=== PATIENT | male | born 1960 | race Caucasian/White ===

== ENCOUNTER 2020-08-14 13:20 | Observation (INO) | payer OTHER ==
--- NOTE | 2020-08-14 13:30 | PDOC ---
Rapid Medical Evaluation Time Seen by Provider: 08/14/20 13:24 Medical Evaluation: 08/14/20 13:24 CC: was at dr guerrero for routine visit and while drawing blood fainted, he states this has happened a few times prior due to blood drawing and denies any pain presently. On no anticoagulation tx, no headache or dizziness presently, questionable sz recently Exam: no neuro focal deficits Plan: head ct Discharge Disposition - Diagnosis Syncope - Referrals - Patient Instructions - Post Discharge Activity
--- NOTE | 2020-08-14 14:14 | PDOC ---
History of Present Illness - General Chief Complaint: Syncope/Near Syncope Stated Complaint: SYNCOPE Time Seen by Provider: 08/14/20 13:24 - History of Present Illness Initial Comments: 59 yo male with pmh HTN, HLD, back pain, insomnia. Pt presents after fainting while having his blood drawn at the lab. He felt warm, dizzy, and had abdominal discomfort prior to losign consciousness. He was unconscious for 5 minutes, returned to baseline without confusion, did not fall or hit his head, did not have bowel/urinary incontinence, was able to ambulate afterwards. This has happened 4-5 other times during blood draws. He denies fevers, chills, cp, sob, nvd, abd pain, dysuria. 08/14/20 14:10 Past History - Medical History Allergies/Adverse Reactions: Allergies Allergy/AdvReac Type Severity Reaction Status Date / Time No Known Allergies Allergy Verified 08/15/20 09:34 Home Medications: Ambulatory Orders Amitriptyline HCl 25 mg PO DAILY 08/14/20 Atorvastatin Ca [Lipitor] 20 mg PO HS 08/14/20 Cyanocobalamin (Vitamin B-12) [Vitamin B-12] 1,000 mcg PO DAILY 30 Days #30 capsule 08/15/20 Metoprolol Succinate 50 mg PO DAILY 30 Days #30 tab.er.24h 08/15/20 CVA: No COPD: No HTN: Yes Hypercholesterolemia: Yes - Psycho-Social/Smoking History Smoking History: Never smoked Have you smoked in the past 12 months: No Information on smoking cessation initiated: No - Substance Abuse Hx (Audit-C & DAST Scrn) How often the patient has a drink containing alcohol: Never Score: In Men: 4 or > Positive; In Women: 3 or > Positive: 0 Screen Result (Pos requires Nsg. Audit-10AR): Negative In the last yr the pt used illegal drug/Rx for NonMed reason: No Score: Yes response is considered Positive: 0 Screen Result (Positive result requires Nsg. DAST-10): Negative Review of Systems - Review of Systems Constitutional: No: Chills, Fever HEENTM: No: Blurred Vision, Recent change in vision, Double Vision Respiratory: No: Cough, Shortness of Breath Cardiac (ROS): Yes: Syncope. No: Chest Pain, Lightheadedness, Palpitations ABD/GI: No: Diarrhea, Nausea, Vomiting : No: Dysuria, Discharge, Hematuria Musculoskeletal: No: Back Pain, Joint Pain Integumentary: No: Erythema, Lesions Neurological: No: Headache, Tingling Psychiatric: No: Anxiety, Depression Endocrine: No: Intolerance to Cold, Intolerance to Heat Hematologic/Lymphatic: No: Anemia, Easy Bleeding *Physical Exam - Vital Signs Last Vital Signs Temp Pulse Resp BP Pulse Ox 98.3 F 73 17 110/77 100 08/14/20 13:25 08/14/20 13:25 08/14/20 13:25 08/14/20 13:25 08/14/20 13:25 - Physical Exam General Appearance: Yes: Appropriately Dressed. No: Apparent Distress HEENT: positive: TARIQ, Normal ENT Inspection, Normal Voice Neck: negative: Tender, Rigid Respiratory/Chest: positive: Lungs Clear, Normal Breath Sounds. negative: Respiratory Distress Cardiovascular: positive: Regular Rhythm, Regular Rate, S1, S2. negative: Edema, JVD, Murmur Gastrointestinal/Abdominal: positive: Flat, Soft. negative: Tender Musculoskeletal: positive: Normal Inspection. 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 Pt presents after a sycopal episode during blood draw - prodrome of warmth, dizziness, abd distention. - return to baseline w/o confusion, no incontinence - pt is currently asymptomatic VS: wnl PE: rrr, clear lungs, nt nd abdomen EKG: Brugada Labs: cbc: wnl cmp: hypokalemia (3.4), theresa (creatinine 1.9 Differential Dx: elliot Spoke with Dr. Villarreal who will perform Procainamide stress test tomorrow. Pt admitted to inpatient team Discharge - Discharge Information Problems reviewed: Yes Clinical Impression/Diagnosis: Syncope Qualifiers: Syncope type: unspecified Qualified Code(s): R55 - Syncope and collapse Condition: Fair Disposition: AGAINST MEDICAL ADVICE - Admission Yes - Follow up/Referral - Patient Discharge Instructions - Post Discharge Activity
--- NOTE | 2020-08-14 14:28 | PDOC ---
Documentation entered by Shira Cruz SCRIBE, acting as scribe for Thang Bobby MD. Thang Bobby MD: This documentation has been prepared by the Anthony alvares Xhesika, SCRIBE, under my direction and personally reviewed by me in its entirety. I confirm that the documentation accurately reflects all work, treatment, procedures, and medical decision making performed by me. Attending Attestation - Resident Resident Name: Karoline Sutherland - ED Attending Attestation I have performed the following: I have examined & evaluated the patient, The case was reviewed & discussed with the resident, I agree w/resident's findings & plan, Exceptions are as noted - HPI HPI: 08/14/20 14:15 The patient is a 59y/o male with a pmh of HTN, HLD, back pain, insomnia s/p syncopal episode while having his blood drawn at the lab. Pt states he was unconscious for 5 minutes and then returned to baseline without confusion. Pt denies hitting his head.Pt denies bowel/urinary incontinence,fevers, chills, cp, sob, nvd, abd pain, dysuria. Allergies: Per Nursing Records PCP:Dr. Franklin - Physicial Exam PE: 08/14/20 14:27 EXAMINATION CONSTITUTIONAL: Well-appearing; well-nourished; in no apparent distress HEAD: Normocephalic; atraumatic EYES: PERRL; EOM intact ENMT: External appears normal; normal oropharynx NECK: Supple; non-tender; no cervical lymphadenopathy CARD: Normal S1, S2; no murmurs, rubs, or gallops RESP: Normal chest excursion with respiration; breath sounds clear and equal bilaterally; no wheezes, rhonchi, or rales ABD: Soft, non-distended; non-tender; no palpable organomegaly, no palpable hernias EXT: Normal ROM in all four extremities; non-tender to palpation; distal pulses intact SKIN: Warm, dry, no rash NECranial nerves II through XII are grossly intact; motor is five 5 x 5 x 4; no pronation drift; gait is stable. - Medical Decision Making 08/14/20 14:27 Patient is a well-appearing 59-year-old male with history of recurrent vasovagal syncope is after blood draws presented to the ER after a witnessed syncopal/seizure-like episode at the PMDs office while his blood was being drawn without head injury or associated postictal period. In the ER, patient is awake and alert, well-appearing, with no focal neuro deficits. Will obtain EKG. Will discuss with PMD. Likely discharge. 08/14/20 16:16 EKG shows RBBB like QRS complexes in the precordial leads with ST segment elevation suggestive of Brugada. QTC is also noted to be elevated. Cardiology consulted. Advises evaluation and admission. Will admit. Discharge - Discharge Information Problems reviewed: Yes Clinical Impression/Diagnosis: Syncope Qualifiers: Syncope type: unspecified Qualified Code(s): R55 - Syncope and collapse Condition: Fair - Follow up/Referral - Patient Discharge Instructions Patient Printed Discharge Instructions: DI for Syncope in Adults (Fainting) Additional Instructions: At home, drink plenty of fluids and stay well nourished. Follow up with your primary care doctor within 5 days. Return to the emergency department if your symptoms worsen and/or you experience fevers, chills, headaches, lightheadedness, faintness, shortness of breath, chest pain, nausea, vomiting, diarrhea, abdominal pain. - Post Discharge Activity
--- NOTE | 2020-08-14 15:12 | EKG ---
Test Reason : Blood Pressure : / mmHG Vent. Rate : 098 BPM Atrial Rate : 098 BPM P-R Int : 154 ms QRS Dur : 152 ms QT Int : 422 ms P-R-T Axes : 050 -31 019 degrees QTc Int : 538 ms NORMAL SINUS RHYTHM LEFT AXIS DEVIATION RIGHT BUNDLE BRANCH BLOCK ABNORMAL ECG NO PREVIOUS ECGS AVAILABLE Confirmed by MD LIN, YARITZA ([id number]) on 08/14/2020 3:12:07 PM Referred By: Confirmed By:YARITZA CEBALLOS MD
[2020-08-14 16:50] LABS: BASO % 0.7 % (0-2.0); EOS % 1.7 % (0-4.5); HEMATOCRIT 37.9 % (35.4-49); HEMOGLOBIN 12.2 GM/dL (11.7-16.9); LYMPH % 15.1 % (8-40); MCHC 32.1 g/dl (32.0-35.9); MEAN CELL VOLUME 77.8 fl (80-96); MEAN PLT VOLUME 8.9 fl (7.5-11.1); MONO % 6.2 % (3.8-10.2); NEUT % 76.3 % (42.8-82.8); PLATELET COUNT 330 K/MM3 (134-434); RBC 4.87 M/mm3 (4.00-5.60); RDW 17.4 % (11.9-15.9); WHITE BLOOD COUNT 9.6 K/mm3 (4.0-10.0)
[2020-08-14 17:07] LABS: INR 1.02 (0.83-1.09); PROTHROMBIN TIME (PATIENT) 12.3 SEC (9.7-13.0)
[2020-08-14 17:17] LABS: POTASSIUM 3.4 mmol/L (3.5-5.1)
[2020-08-14 17:20] LABS: CALCIUM 9.3 mg/dL (8.5-10.1)
[2020-08-14 17:21] LABS: ALBUMIN 3.8 g/dl (3.4-5.0); BLOOD UREA NITROGEN 20.1 mg/dL (7-18); MAGNESIUM 2.2 mg/dL (1.8-2.4)
[2020-08-14 17:24] LABS: CREATININE 1.9 mg/dL (0.55-1.3)
[2020-08-14 17:25] LABS: BILIRUBIN,TOTAL 0.4 mg/dL (0.2-1); TOT PROT 8.2 g/dl (6.4-8.2)
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
[2020-08-14] MEDS ORDERED: POTASSIUM CHLORIDE TABS 20 MEQ TABLET.ER (FP) PO ONE ×2 (18:26→18:30)
--- NOTE | 2020-08-14 18:37 | PN ---
Teaching Attending Note Name of Resident: Julissa Trammell ATTENDING PHYSICIAN STATEMENT I saw and evaluated the patient. I reviewed the resident's note and discussed the case with the resident. I agree with the resident's findings and plan as documented. SUBJECTIVE: Patient seen and examined at bedside, endorses syncopal episode when getting his blood drawn, EKG concerning for ?Brugada but unclear will need repeat EKG/trops and possible Procainamide-induced study for further investigation for Na-channelopathy. VSS. OBJECTIVE: GA comfortable, AAox3, NAD HEENT NC/AT, no JVD, Dry MM, neck supple Chest CTAB, no crackles CVS s1, s2+, RRR Abd Soft, NT, ND, BS+ Ext no LE edema, no calf tenderness, moves all 4 ext. Vital Signs (72 hours) 08/14/20 08/14/20 08/14/20 13:25 16:50 17:03 Temperature 98.3 F 98.2 F Pulse Rate 73 Pulse Rate [ 96 H 96 H Apical] Respiratory 17 19 19 Rate Blood Pressure 110/77 Blood Pressure 124/88 130/86 [Right Arm] O2 Sat by Pulse 100 100 99 Oximetry (%) 08/14/20 17:22 Temperature 98.0 F Pulse Rate Pulse Rate [ 89 Apical] Respiratory 19 Rate Blood Pressure Blood Pressure 132/76 [Right Arm] O2 Sat by Pulse 100 Oximetry (%) Laboratory Results - last 24 hr 08/14/20 08/14/20 08/14/20 16:12 16:12 16:12 WBC 9.6 RBC 4.87 Hgb 12.2 Hct 37.9 MCV 77.8 L MCH 25.0 L MCHC 32.1 RDW 17.4 H Plt Count 330 MPV 8.9 Absolute Neuts (auto) 7.3 Neutrophils % 76.3 Lymphocytes % 15.1 Monocytes % 6.2 Eosinophils % 1.7 Basophils % 0.7 Nucleated RBC % 1 H PT with INR 12.30 INR 1.02 Sodium 139 Potassium 3.4 L Chloride 101 Carbon Dioxide 24 Anion Gap 14 BUN 20.1 H Creatinine 1.9 H Est GFR (CKD-EPI)AfAm 43.14 Est GFR (CKD-EPI)NonAf 37.22 Random Glucose 89 Calcium 9.3 Magnesium 2.2 Total Bilirubin 0.4 AST 19 ALT 24 Alkaline Phosphatase 84 Creatine Kinase 99 Troponin I 0.03 Total Protein 8.2 Albumin 3.8 Urine Color Urine Appearance Urine pH Ur Specific Roslyn Urine Protein Urine Glucose (UA) Urine Ketones Urine Blood Urine Nitrite Urine Bilirubin Urine Urobilinogen Ur Leukocyte Esterase Urine WBC (Auto) Urine RBC (Auto) Urine Casts (Auto) U Epithel Cells (Auto) Urine Bacteria (Auto) 08/14/20 18:35 WBC RBC Hgb Hct MCV MCH MCHC RDW Plt Count MPV Absolute Neuts (auto) Neutrophils % Lymphocytes % Monocytes % Eosinophils % Basophils % Nucleated RBC % PT with INR INR Sodium Potassium Chloride Carbon Dioxide Anion Gap BUN Creatinine Est GFR (CKD-EPI)AfAm Est GFR (CKD-EPI)NonAf Random Glucose Calcium Magnesium Total Bilirubin AST ALT Alkaline Phosphatase Creatine Kinase Troponin I Total Protein Albumin Urine Color Yellow Urine Appearance Clear Urine pH 6.5 Ur Specific Roslyn 1.016 Urine Protein 1+ H Urine Glucose (UA) Negative Urine Ketones Negative Urine Blood Negative Urine Nitrite Negative Urine Bilirubin Negative Urine Urobilinogen 0.2 Ur Leukocyte Esterase Negative Urine WBC (Auto) 11 Urine RBC (Auto) 10 Urine Casts (Auto) 13 U Epithel Cells (Auto) 10 Urine Bacteria (Auto) 9 Home Medications Medication Instructions Recorded Amitriptyline HCl 25 mg PO DAILY 08/14/20 Amlodipine Besylate/Benazepril 1 cap PO DAILY 08/14/20 [Lotrel 10-20 mg Capsule] Atorvastatin Ca [Lipitor] 20 mg PO HS 08/14/20 Ibuprofen 800 mg PO Q8H PRN 08/14/20 Current Medications Generic Name Dose Route Start Last Admin Trade Name Freq PRN Reason Stop Dose Admin Amitriptyline HCl 25 mg 08/14/20 22:00 Elavil - PO HS [facility] Atorvastatin Calcium 20 mg 08/14/20 22:00 Lipitor - PO HS SAMINA Heparin Sodium (Porcine) 5,000 unit 08/14/20 22:00 Heparin - SQ TID [facility] ASSESSMENT AND PLAN: 59 M r/o Brugada syndrome Syncope LUIS Chronic LBP HTN HLD Plan: Hold all NSAIDs, IVF and repeat chem Renal US for LUIS Repeat trops/EKG serially, tele monitoring Correct electrolytes aggressively, IV Mg for prolonged Qtc and DC Elavil as this may further prolong Qtc Cardiology following DVT ppx: Heparin SC
[2020-08-14 18:49] LABS: EPI CELLS 10 /uL (0-25.1); HYALINE CASTS 13 /uL (0-3.1); PH,URINE 6.5 (5.0-8.0); URINE APPEARANCE CLEAR; URINE BACTERIA 9 /uL (0-1359); URINE BILIRUBIN NEGATIVE (NEGATIVE); URINE COLOR YELLOW; URINE GLUCOSE (UA) NEGATIVE (NEGATIVE); URINE KETONE NEGATIVE (NEGATIVE); URINE LEUK ESTERASE NEGATIVE (NEGATIVE); URINE NITRITE NEGATIVE (NEGATIVE); URINE PROTEIN 1+ (NEGATIVE); URINE RBC 10 /uL (0-23.9); URINE UROBILINOGEN 0.2 mg/dL (0.2-1.0); URINE WBC 11 /uL (0-25.8)
[2020-08-14] MEDS ORDERED: MAGNESIUM SULF 50% (8.12 MEQ/2 ML-1 GM VIAL) IVPB ONE (18:49)
[2020-08-14] MEDS ORDERED: LACTATED RINGERS SOLUTION 1000 ML INFUS.BAG IV ONE (18:49)
[2020-08-14] MEDS ORDERED: MAGNESIUM SULFATE IN WATER 2 GM/50 ML IVPB IVPB ONE (18:54)
--- NOTE | 2020-08-14 19:12 | CON.CARD ---
Consult Consult Specialty:: Cardiology Referred by:: ED and Dr. Chang Reason for Consultation:: Syncope with Brugada features on ECG. - History of Present Illness Chief Complaint: Faiting during blood draw. History of Present Illness: 59 year old man with a PMHx of HTN, HLD, recurrent syncope starting in the and chronic low back pain presented to ED 08/24/20 for a syncopal episode during blood draw. Patient started feeling dizzy and "tight" around the abdominal area and suddenly passed out while he was having blood draw. He was unconscious for about 5 minutes and regained consciousness without confusion. No fall, trauma, bowel/bladder incontinence. Patient reports he had many syncopal episodes that started in the . He would usually have syncopal episodes every 1-2 years. Last reported syncopal episode was 7 months ago when he passed out while crossing the street. He denies any recent illness or sick contacts. He reports no chest pain, shortness of breath, palpitations, edema orthopnea, PND, abdominal pain, diarrhea, urinary symptoms. ECG 08/14/20: Sinus rhythm at BPM. Normal axis. RBBB with some type I Brugada features. However, the suspected big R wave (rSR) is part of RBBB. There is no coved type ST elevation in V1 or V2. 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 Cardio/Vascular: Yes: HTN, Hyperlipdemia, Other - Smoking History Smoking history: Never smoked Have you smoked in the past 12 months: No Home Medications - Allergies Allergies/Adverse Reactions: Allergies Allergy/AdvReac Type Severity Reaction Status Date / Time No Known Allergies Allergy Verified 08/14/20 16:28 - Home Medications Home Medications: Ambulatory Orders Amitriptyline HCl 25 mg PO DAILY 08/14/20 Amlodipine Besylate/Benazepril [Lotrel 10-20 mg Capsule] 1 cap PO DAILY 08/14/20 Atorvastatin Ca [Lipitor] 20 mg PO HS 08/14/20 Ibuprofen 800 mg PO Q8H PRN 08/14/20 Review of Systems - Review of Systems Constitutional: reports: Weakness Eyes: reports: No Symptoms HENT: reports: No Symptoms Neck: reports: No Symptoms Cardiovascular: reports: Other Respiratory: reports: No Symptoms Gastrointestinal: reports: Abdominal Pain Genitourinary: reports: No Symptoms Breasts: reports: No Symptoms Reported Musculoskeletal: reports: No Symptoms Integumentary: reports: No Symptoms Neurological: reports: Change in LOC, Syncope Endocrine: reports: No Symptoms Hematology/Lymphatic: reports: No Symptoms Psychiatric: reports: No Symptoms Vital Signs: Vital Signs Temperature 98.0 F 08/14/20 17:22 Pulse Rate 89 08/14/20 17:22 Respiratory Rate 19 08/14/20 17:22 Blood Pressure 132/76 08/14/20 17:22 O2 Sat by Pulse Oximetry (%) 100 08/14/20 17:22 General: Well developed. Obese. No acute distress. Head: Normocephalic. Atraumatic, Eyes: PERRLA, EOMI. Sclerae anicteric. Conjunctivae clear. Neck: Supple. No JVD. No bruits. Heart: Normal S1, S2: Regular rhythm and rate. No murmur. No gallop or rub. Lungs: Symmetrical air entry. Clear to auscultation. No crackle. No wheezing or rhonchi. Abdomen: Soft. Bowel sound positive. Non tender. No masses. Extremities: No edema. No clubbing or cyanosis. PD 2+, equal bilaterally. Neuro: Intact, no focal findings. AAO X3 - Other Data Labs, Other Data: CBC, BMP 08/14/20 16:12 08/14/20 16:12 INR, PTT INR 1.02 (0.83-1.09) 08/14/20 16:12 Troponin, BNP 08/14/20 16:12 Troponin I 0.03 Troponin, BNP 08/14/20 16:12 Troponin I 0.03 Imaging - Results EKG: Image Reviewed (ECG 08/14/20: Sinus rhythm at BPM. Normal axis. RBBB with some type I Brugada features. However, the suspected big R wave (rSR) is part of RBBB. There is no coved type ST elevation in V1 or V2.) Assessment/Plan 59 year old man with a PMHx of HTN, HLD, recurrent syncope starting in the and chronic low back pain presented to ED 08/24/20 for a syncopal episode during blood draw. ECG 08/14/20: Sinus rhythm at BPM. Normal axis. RBBB with some type I Brugada features. However, the suspected big R wave (rSR) is part of RBBB. There is no coved type ST elevation in V1 or V2. 1) Recurrent syncope, predominantly happened during blood draw, likely vasovagal syncope. -Agree to admit the patient to tele. -Start metoprolol succinate 50 mg daily. -Would hold lisinopril and amlodipine if BP is under control with metoprolol. -Echocardiogram -Will consider tilt table test as ourpatient. 2) Questionable Brugada pattern on ECG. I reviewed ECG carefully. The suspected big R wave (rSR) is part of right bundle branch block (RBBB). There is no coved type ST elevation in V1 or V2 (pseudo-RBBB). He has true RBBB. NOT Brugada ECG pattern. -Repeat ECG. We will follow the patient with you.
[2020-08-14] MEDS ORDERED: AMITRIPTYLINE HCL 25 MG TABLET PO SCH (22:00)
[2020-08-14] MEDS ORDERED: ATORVASTATIN CA 20 MG TABLET (FP) PO SCH (22:00)
[2020-08-14] MEDS ORDERED: ATORVASTATIN CA 20 MG TABLET (FP) ONE (22:08)
[2020-08-14] MEDS ORDERED: HEPARIN NA (PORCINE) 5,000 UNITS/ML 1ML VIAL ONE (22:08)
[2020-08-14] MEDS: HEPARIN NA (PORCINE) 5,000 UNITS/ML 1ML VIAL SQ SCH (22:14)
[2020-08-15 01:18] VITALS: BMI 30.4
[2020-08-15] MEDS: HEPARIN NA (PORCINE) 5,000 UNITS/ML 1ML VIAL SQ SCH (06:30)
[2020-08-15 06:59] LABS: BASO % 1.2 % (0-2.0); EOS % 4.6 % (0-4.5); HEMATOCRIT 35.2 % (35.4-49); HEMOGLOBIN 11.3 GM/dL (11.7-16.9); LYMPH % 29.4 % (8-40); MCH 24.9 pg (25.7-33.7); MCHC 32.1 g/dl (32.0-35.9); MEAN CELL VOLUME 77.5 fl (80-96); MEAN PLT VOLUME 8.8 fl (7.5-11.1); MONO % 11.6 % (3.8-10.2); NEUT % 53.2 % (42.8-82.8); PLATELET COUNT 267 K/MM3 (134-434); RBC 4.54 M/mm3 (4.00-5.60); RDW 16.8 % (11.9-15.9)
[2020-08-15 07:10] LABS: PROTHROMBIN TIME (PATIENT) 12.1 SEC (9.7-13.0)
[2020-08-15 07:13] LABS: ACTIVATED PTT 21.8 SECONDS (25.2-36.5)
[2020-08-15 07:20] LABS: POTASSIUM 3.3 mmol/L (3.5-5.1)
[2020-08-15 07:41] LABS: TOT PROT 7.4 g/dl (6.4-8.2)
[2020-08-15 07:42] LABS: BLOOD UREA NITROGEN 26.2 mg/dL (7-18); CREATININE 1.5 mg/dL (0.55-1.3)
[2020-08-15 07:44] LABS: ALBUMIN 3.2 g/dl (3.4-5.0); PHOSPHOROUS 3.7 mg/dL (2.5-4.9)
[2020-08-15 07:49] LABS: MAGNESIUM 2.3 mg/dL (1.8-2.4)
[2020-08-15 07:54] LABS: BILIRUBIN,TOTAL 0.4 mg/dL (0.2-1)
[2020-08-15 08:36] VITALS: BP 129/76; PULSE 92; TEMP 98
[2020-08-15] MEDS ORDERED: POTASSIUM CHLORIDE TABS 20 MEQ TABLET.ER (FP) PO ONE (09:00)
[2020-08-15 09:24] LABS: ERYTHROCYTE SEDIMENTATION RATE 42 mm/hr (0-20)
[2020-08-15] MEDS ORDERED: LISINOPRIL 20 MG TABLET PO SCH (10:00)
[2020-08-15] MEDS ORDERED: PATIENT'S OWN MEDICATION (NON-FORMULARY) (Amlodipine Besylate/Benazepril [Lotrel 10-20 Mg PO SCH (10:00)
[2020-08-15] MEDS ORDERED: amLODIPine BESYLATE 10 MG TABLET (FP) PO SCH ×2 (10:00)
--- NOTE | 2020-08-15 11:49 | EKG ---
Test Reason : Blood Pressure : / mmHG Vent. Rate : 096 BPM Atrial Rate : 096 BPM P-R Int : 156 ms QRS Dur : 150 ms QT Int : 406 ms P-R-T Axes : 053 -45 006 degrees QTc Int : 512 ms NORMAL SINUS RHYTHM POSSIBLE LEFT ATRIAL ENLARGEMENT RIGHT BUNDLE BRANCH BLOCK LEFT ANTERIOR FASCICULAR BLOCK BIFASCICULAR BLOCK CANNOT RULE OUT INFERIOR INFARCT (MASKED BY FASCICULAR BLOCK?) , AGE UNDETERMINED ABNORMAL ECG WHEN COMPARED WITH ECG OF 14-AUG-2020 14:34, MINIMAL CRITERIA FOR INFERIOR INFARCT ARE NOW PRESENT Confirmed by BRAD EVERETT MD ([id number]) on 08/15/2020 11:49:24 AM Referred By: Confirmed By:BRAD EVERETT MD
--- NOTE | 2020-08-15 14:21 | PN ---
Teaching Attending Note Name of Resident: Vanessa Mederos ATTENDING PHYSICIAN STATEMENT I saw and evaluated the patient. I reviewed the resident's note and discussed the case with the resident. I agree with the resident's findings and plan as documented. SUBJECTIVE: Feels well, wants to go home. Denies chest pain/palpitations/lightheadedness. No headache/visual disturbance/limb numbness/weakness. OBJECTIVE: Afebrile, hemodynamically stable. Last Vital Signs Temp Pulse Resp BP Pulse Ox 98.0 F 92 H 18 129/76 98 08/15/20 08:17 08/15/20 08:17 08/15/20 08:36 08/15/20 08:17 08/15/20 08:36 HEENT - Atraumatic, Normocephalic. Heart - S1 S2, RRR Lungs - clear to auscultation Abdomen - Soft, non-tender. Bowel Sounds normal. Extremities - no edema, no calf tenderness. Neuro - AAO x 3. Tone/Power normal. Laboratory Results - last 24 hr 08/14/20 08/14/20 08/14/20 16:12 16:12 16:12 WBC 9.6 RBC 4.87 Hgb 12.2 Hct 37.9 MCV 77.8 L MCH 25.0 L MCHC 32.1 RDW 17.4 H Plt Count 330 MPV 8.9 Absolute Neuts (auto) 7.3 Neutrophils % 76.3 Lymphocytes % 15.1 Monocytes % 6.2 Eosinophils % 1.7 Basophils % 0.7 Nucleated RBC % 1 H ESR PT with INR 12.30 INR 1.02 PTT (Actin FS) Sodium 139 Potassium 3.4 L Chloride 101 Carbon Dioxide 24 Anion Gap 14 BUN 20.1 H Creatinine 1.9 H Est GFR (CKD-EPI)AfAm 43.14 Est GFR (CKD-EPI)NonAf 37.22 Random Glucose 89 Calcium 9.3 Phosphorus Magnesium 2.2 Ferritin Total Bilirubin 0.4 AST 19 ALT 24 Alkaline Phosphatase 84 Creatine Kinase 99 Troponin I 0.03 Total Protein 8.2 Albumin 3.8 Vitamin B12 TSH Urine Color Urine Appearance Urine pH Ur Specific [place] Urine Protein Urine Glucose (UA) Urine Ketones Urine Blood Urine Nitrite Urine Bilirubin Urine Urobilinogen Ur Leukocyte Esterase Urine WBC (Auto) Urine RBC (Auto) Urine Casts (Auto) U Pathogenic Cast Auto U Epithel Cells (Auto) Urine Bacteria (Auto) Syphilis Serology 08/14/20 08/14/20 08/15/20 18:35 22:00 06:12 WBC 5.0 RBC 4.54 Hgb 11.3 L Hct 35.2 L MCV 77.5 L MCH 24.9 L MCHC 32.1 RDW 16.8 H Plt Count 267 MPV 8.8 Absolute Neuts (auto) 2.7 Neutrophils % 53.2 D Lymphocytes % 29.4 D Monocytes % 11.6 H D Eosinophils % 4.6 H D Basophils % 1.2 Nucleated RBC % 0 ESR 42 H PT with INR INR PTT (Actin FS) Sodium Potassium Chloride Carbon Dioxide Anion Gap BUN Creatinine Est GFR (CKD-EPI)AfAm Est GFR (CKD-EPI)NonAf Random Glucose Calcium Phosphorus Magnesium Ferritin Total Bilirubin AST ALT Alkaline Phosphatase Creatine Kinase Troponin I < 0.02 Total Protein Albumin Vitamin B12 TSH Urine Color Yellow Urine Appearance Clear Urine pH 6.5 Ur Specific [place] 1.016 Urine Protein 1+ H Urine Glucose (UA) Negative Urine Ketones Negative Urine Blood Negative Urine Nitrite Negative Urine Bilirubin Negative Urine Urobilinogen 0.2 Ur Leukocyte Esterase Negative Urine WBC (Auto) 11 Urine RBC (Auto) 10 Urine Casts (Auto) 13 U Pathogenic Cast Auto Negative U Epithel Cells (Auto) 10 Urine Bacteria (Auto) 9 Syphilis Serology 08/15/20 08/15/20 08/15/20 06:12 06:12 06:12 WBC RBC Hgb Hct MCV MCH MCHC RDW Plt Count MPV Absolute Neuts (auto) Neutrophils % Lymphocytes % Monocytes % Eosinophils % Basophils % Nucleated RBC % ESR PT with INR 12.10 INR 1.00 PTT (Actin FS) 21.8 L Sodium 142 Potassium 3.3 L Chloride 106 Carbon Dioxide 25 Anion Gap 11 BUN 26.2 H Creatinine 1.5 H Est GFR (CKD-EPI)AfAm 57.41 Est GFR (CKD-EPI)NonAf 49.53 Random Glucose 121 H Calcium 9.0 Phosphorus 3.7 Magnesium 2.3 Ferritin 11.7 Total Bilirubin 0.4 AST 13 L ALT 21 Alkaline Phosphatase 78 Creatine Kinase Troponin I 0.02 Total Protein 7.4 Albumin 3.2 L Vitamin B12 280 TSH 0.98 D Urine Color Urine Appearance Urine pH Ur Specific [place] Urine Protein Urine Glucose (UA) Urine Ketones Urine Blood Urine Nitrite Urine Bilirubin Urine Urobilinogen Ur Leukocyte Esterase Urine WBC (Auto) Urine RBC (Auto) Urine Casts (Auto) U Pathogenic Cast Auto U Epithel Cells (Auto) Urine Bacteria (Auto) Syphilis Serology Non-reactive Discharge Medications Medication Instructions Recorded Amitriptyline HCl 25 mg PO DAILY 08/14/20 Atorvastatin Ca [Lipitor] 20 mg PO HS 08/14/20 Cyanocobalamin (Vitamin B-12) 1,000 mcg PO DAILY 30 Days #30 08/15/20 [Vitamin B-12] capsule Metoprolol Succinate 50 mg PO DAILY 30 Days #30 08/15/20 tab.er.24h ASSESSMENT AND PLAN: 59 year old male with history of HTN, HLD, Chronic lower back pain, recurrent syncope, admitted after syncopal episode during blood draw at PCP office. 1. Syncope, likely vasovagal Orthostatics negative CT Head - no acute findings, chronic multiple wander-ventricular low attenuation foci -chronic microvascular disease vs demyelination - for MRI and Neuro referral. Echo result pending. Carotid Duplex - tiny plaques, no hemodynamically significant stenosis. ECG - RBBB, TnI neg x 3. Cardiology evaluated and recommend starting Metoprolol. Norvasc/SAUD-I to be discontinued. Cardio out-patient follow up for tilt table testing. 3. LUIS on CKD 3 - Creat improving with gentle hydration. To determine baseline Creat from PCP 4. B12 borderline, likely deficient, needs replacement. 5. HTN - Norvasc/SAUD stopped in favor of Metoprolol as per Cardio. 6. HLD - Continue Statin 7. Microcytosis - Anemia work-up requested/pending 8. Hypokalemia - repleted. Patient refused to stay hospitalized for further eval and prior to Echo result. He was advised of adverse effects of leaving AMA and understood those risks including collapse, disability, . He signed appropriate documentation to leave against medical advice and was of sound mind with capacity for medical decision making. He was advised regarding Cardiology recommendations to stop Norvasc/SAUD-I in favor of Metoprolol, which he was told would be sent to his pharmacy. He was also advised to follow Cardiology on discharge.
--- NOTE | 2020-08-15 15:12 | DS ---
Physical Exam: SUBJECTIVE: Patient seen and examined. States he is leaving AMA because he needs to pay his rent. OBJECTIVE: Vital Signs Period Temp Pulse Resp BP Sys/Huff Pulse Ox Last 24 Hr 97.6 F-98.2 F 86-99 18-20 124-157/75-88 97-100 PHYSICAL EXAM GENERAL: The patient is awake, alert, and fully oriented, in no acute distress. HEAD: Normal with no signs of trauma. EYES: PERRL, extraocular movements intact NECK: Trachea midline, full range of motion LUNGS: Breath sounds equal, clear to auscultation bilaterally, no accessory muscle use. HEART: Regular rate and rhythm, S1, S2 without murmur, rub or gallop. ABDOMEN: Soft, nontender, nondistended EXTREMITIES: 2+ pulses, warm, well-perfused, no edema. NEUROLOGICAL: Cranial nerves II through XII grossly intact. Normal speech, gait not observed. PSYCH: Normal mood, normal affect. LABS Laboratory Results - last 24 hr 08/14/20 08/14/20 08/14/20 16:12 16:12 16:12 WBC 9.6 RBC 4.87 Hgb 12.2 Hct 37.9 MCV 77.8 L MCH 25.0 L MCHC 32.1 RDW 17.4 H Plt Count 330 MPV 8.9 Absolute Neuts (auto) 7.3 Neutrophils % 76.3 Lymphocytes % 15.1 Monocytes % 6.2 Eosinophils % 1.7 Basophils % 0.7 Nucleated RBC % 1 H ESR PT with INR 12.30 INR 1.02 PTT (Actin FS) Sodium 139 Potassium 3.4 L Chloride 101 Carbon Dioxide 24 Anion Gap 14 BUN 20.1 H Creatinine 1.9 H Est GFR (CKD-EPI)AfAm 43.14 Est GFR (CKD-EPI)NonAf 37.22 Random Glucose 89 Calcium 9.3 Phosphorus Magnesium 2.2 Ferritin Total Bilirubin 0.4 AST 19 ALT 24 Alkaline Phosphatase 84 Creatine Kinase 99 Troponin I 0.03 Total Protein 8.2 Albumin 3.8 Vitamin B12 TSH Urine Color Urine Appearance Urine pH Ur Specific [place] Urine Protein Urine Glucose (UA) Urine Ketones Urine Blood Urine Nitrite Urine Bilirubin Urine Urobilinogen Ur Leukocyte Esterase Urine WBC (Auto) Urine RBC (Auto) Urine Casts (Auto) U Pathogenic Cast Auto U Epithel Cells (Auto) Urine Bacteria (Auto) Syphilis Serology 08/14/20 08/14/20 08/15/20 18:35 22:00 06:12 WBC 5.0 RBC 4.54 Hgb 11.3 L Hct 35.2 L MCV 77.5 L MCH 24.9 L MCHC 32.1 RDW 16.8 H Plt Count 267 MPV 8.8 Absolute Neuts (auto) 2.7 Neutrophils % 53.2 D Lymphocytes % 29.4 D Monocytes % 11.6 H D Eosinophils % 4.6 H D Basophils % 1.2 Nucleated RBC % 0 ESR 42 H PT with INR INR PTT (Actin FS) Sodium Potassium Chloride Carbon Dioxide Anion Gap BUN Creatinine Est GFR (CKD-EPI)AfAm Est GFR (CKD-EPI)NonAf Random Glucose Calcium Phosphorus Magnesium Ferritin Total Bilirubin AST ALT Alkaline Phosphatase Creatine Kinase Troponin I < 0.02 Total Protein Albumin Vitamin B12 TSH Urine Color Yellow Urine Appearance Clear Urine pH 6.5 Ur Specific [place] 1.016 Urine Protein 1+ H Urine Glucose (UA) Negative Urine Ketones Negative Urine Blood Negative Urine Nitrite Negative Urine Bilirubin Negative Urine Urobilinogen 0.2 Ur Leukocyte Esterase Negative Urine WBC (Auto) 11 Urine RBC (Auto) 10 Urine Casts (Auto) 13 U Pathogenic Cast Auto Negative U Epithel Cells (Auto) 10 Urine Bacteria (Auto) 9 Syphilis Serology 08/15/20 08/15/20 08/15/20 06:12 06:12 06:12 WBC RBC Hgb Hct MCV MCH MCHC RDW Plt Count MPV Absolute Neuts (auto) Neutrophils % Lymphocytes % Monocytes % Eosinophils % Basophils % Nucleated RBC % ESR PT with INR 12.10 INR 1.00 PTT (Actin FS) 21.8 L Sodium 142 Potassium 3.3 L Chloride 106 Carbon Dioxide 25 Anion Gap 11 BUN 26.2 H Creatinine 1.5 H Est GFR (CKD-EPI)AfAm 57.41 Est GFR (CKD-EPI)NonAf 49.53 Random Glucose 121 H Calcium 9.0 Phosphorus 3.7 Magnesium 2.3 Ferritin 11.7 Total Bilirubin 0.4 AST 13 L ALT 21 Alkaline Phosphatase 78 Creatine Kinase Troponin I 0.02 Total Protein 7.4 Albumin 3.2 L Vitamin B12 280 TSH 0.98 D Urine Color Urine Appearance Urine pH Ur Specific [place] Urine Protein Urine Glucose (UA) Urine Ketones Urine Blood Urine Nitrite Urine Bilirubin Urine Urobilinogen Ur Leukocyte Esterase Urine WBC (Auto) Urine RBC (Auto) Urine Casts (Auto) U Pathogenic Cast Auto U Epithel Cells (Auto) Urine Bacteria (Auto) Syphilis Serology Non-reactive HOSPITAL COURSE: Date of Admission:08/14/20 Priyank Wolfe is a 59 yo man with PMH hypertension, hyperlipidemia, chronic back pain, insomnia, who presents after he passed out while having his blood drawn at his PCP office. He was admitted with syncope. Work up included CT head with no acute findings, but with chronic multiple wander-ventricular low attenuation foci -chronic microvascular disease vs demyelination (he was given referral for neuro), Carotid Dublex showing small plaques with no significant stenosis, EKG with RBB troponins negativex3. He was evaluated by cardiology who advised starting metoprolol succinate 50 mg and discontinuing amlodipine/benzapril. He was also found to be B12 deficient and a prescription for cyanocobalamin was sent to pharmacy. Found to have microcytosis, but anemia work up was not complete prior to him leaving AMA. Prescription for metoprolol succinate and cyanocobalamin sent to pharmacy. Patient warned of dangers of leaving AMA but proceeded to leave in order to pay his rent anyways. Date of Discharge: 08/15/20 Minutes to complete discharge: 35 Discharge Summary Problems reviewed: Yes Reason For Visit: SYNCOPE Condition: Fair - Instructions Diet, Activity, Other Instructions: YOUR VISIT You were brought to the hospital after you lost consciousness during a blood draw. While you were here, we performed an EKG and an ultrasound of the heart, which did not show any acute abnormalities. You were also found to have some chronic changes on your head CT scan. You are being referred to a Neurologist to discuss further management of these findings. You decided to leave against medical advice before your workup could be completed. MEDICATIONS Medications: - Please start taking Metoprolol Succinate 50mg per day by mouth - Please STOP taking Lotrel - Please START taking Vitamin B12 tablets 1000mcg per day by mouth FOLLOW UP Please follow up with your PCP within 1 week Please follow up with the painter interior finish, Tutu Landeros within 1 week Please follow up with Dr. Martínez, the neurologist, within 1 week Referrals: Yang Martínez MD [Staff Physician] - 1 Week (admission for syncope with CT head findings: multiple periventricular low attenuation foci that may represent demyelinating plaques or chronic ischemic changes) Tutu Villarreal MD [Staff Physician] - (f/u admission syncope) Britt Franklin [Staff Physician] - 1 Week (f/u admission syncope) Disposition: AGAINST MEDICAL ADVICE - Home Medications Comprehensive Discharge Medication List: Ambulatory Orders Amitriptyline HCl 25 mg PO DAILY 08/14/20 Atorvastatin Ca [Lipitor] 20 mg PO HS 08/14/20 Cyanocobalamin (Vitamin B-12) [Vitamin B-12] 1,000 mcg PO DAILY 30 Days #30 capsule 08/15/20 Metoprolol Succinate 50 mg PO DAILY 30 Days #30 tab.er.24h 08/15/20 This patient is new to me today: Yes Date on this admission: 08/15/20 Emergency Visit: No Critical Care patient: No - Discharge Referral Referred to [facility] No ATTENDING PHYSICIAN STATEMENT I saw and evaluated the patient. I reviewed the resident's note and discussed the case with the resident. I agree with the resident's findings and plan as documented. SUBJECTIVE: OBJECTIVE: ASSESSMENT AND PLAN:
--- NOTE | 2020-08-16 06:54 | ECHO ---
Name: ELIESER TAYLOR Exam:Adult Echocardiogram Study Date: 08/15/2020 08:44 AM Age: 59 yrs Height: 69 in Weight: 225 lb BSA: 2.2 m2 MMode/2D Measurements & Calculations IVSd: 0.78 cm Ao root diam: 2.9 cm LVIDd: 3.7 cm LA dimension: 3.1 cm LVIDs: 2.8 cm ACS: 1.8 cm LVPWd: 1.7 cm LVPWs: 1.7 cm EDV(Teich): 59.8 ml ESV(Teich): 29.1 ml LVOT diam: 2.0 cm LVLd ap4: 8.8 cm EDV(MOD-sp4): 145.0 ml LVLs ap4: 7.9 cm ESV(MOD-sp4): 72.0 ml SV(MOD-sp4): 73.0 ml TAPSE: 1.9 cm Doppler Measurements & Calculations MV E max bryant: 42.7 cm/sec Ao V2 max: 99.6 cm/sec MV A max bryant: 88.4 cm/sec Ao max P.0 mmHg MV E/A: 0.48 ANDREEA(V,D): 2.1 cm2 MV dec time: 0.07 sec LV V1 max P.0 mmHg PA V2 max: 120.1 cm/sec LV V1 max: 70.1 cm/sec PA max P.8 mmHg Med Peak E' Bryant: 5.3 cm/sec Med E/e': 8.1 Lat Peak E' Bryant: 5.2 cm/sec Lat E/e': 8.3 Procedure A two-dimensional transthoracic echocardiogram with color flow and Doppler was performed. Left Ventricle The left ventricle is normal in size. Left ventricular systolic function is low normal. Ejection Frac tion = 50-55%. No regional wall motion abnormalities noted. Right Ventricle The right ventricle is normal in size and function. Atria Normal left and right atrial size and function. Mitral Valve There is no mitral regurgitation noted. Tricuspid Valve There is trace tricuspid regurgitation. There was insufficient TR detected to calculate RV systolic p ressure. Aortic Valve No hemodynamically significant valvular aortic stenosis. No aortic regurgitation is present. Pulmonic Valve There is no pulmonic valvular regurgitation. Great Vessels The aortic root is normal size. Pericardium/Pleura There is no pericardial effusion. Interpretation Summary Left ventricular systolic function is low normal. The right ventricle is normal in size and function. There is trace tricuspid regurgitation. MD Francisco Mena 08/15/2020 12:07 PM
== END 2020-08-15 11:07 | disposition left against medical advice (07) ==
LOC: JER 13:20 → JERBED 17:36 → J4W 23:03
PROC: 3E023GC Introduction of Other Therapeutic Substance into Muscle, Percutaneous Approach (ICD-10-PCS; principal; 2020-08-14)
PROC: 3E033GC Introduction of Other Therapeutic Substance into Peripheral Vein, Percutaneous Approach (ICD-10-PCS; 2020-08-14)
PROC: 3E0337Z Introduction of Electrolytic and Water Balance Substance into Peripheral Vein, Percutaneous Approach (ICD-10-PCS; 2020-08-14)
DX: R55 Syncope and collapse (principal); I10 Essential (primary) hypertension; E78.5 Hyperlipidemia, unspecified; M54.5 Low back pain; G89.29 Other chronic pain; Z29.9 Encounter for prophylactic measures, unspecified; E66.9 Obesity, unspecified; Z68.30 Body mass index [BMI] 30.0-30.9, adult
CPT/HCPCS: 36415; 70450-TC; 71045-TC-FY; 80053; 81003; 82436; 82550; 82565; 82607; 82728; 83540; 83550; 83735; 84100; 84133; 84300; 84443; 84484; 85025; 85610; 85651; 85730; 86780; 93005; 93010; 93306-TC; 93880-TC; 96372; 96374; 96375; 99285-25; C9803; G0378; J1644; U0003

== ENCOUNTER 2023-10-17 15:03 | Inpatient (IN) | payer OTHER ==
[2023-10-17 15:28] VITALS: BMI 21.9
[2023-10-17] MEDS ORDERED: LABETALOL HCL 5 MG/1 ML (100MG/20 ML VIAL) IVPUSH ONE (16:48)
[2023-10-17 17:06] LABS: EPI CELLS 9 /uL (0-25.1); HYALINE CASTS 0 /uL (0-3.1); URINE APPEARANCE CLEAR; URINE BACTERIA 2 /uL (0-1359); URINE BILIRUBIN NEGATIVE (NEGATIVE); URINE COLOR YELLOW; URINE GLUCOSE (UA) 1+ (NEGATIVE); URINE KETONE NEGATIVE (NEGATIVE); URINE LEUK ESTERASE NEGATIVE (NEGATIVE); URINE NITRITE NEGATIVE (NEGATIVE); URINE PROTEIN 2+ (NEGATIVE); URINE RBC 19 /uL (0-23.9); URINE UROBILINOGEN 0.2 mg/dL (0.2-1.0); URINE WBC 5 /uL (0-25.8)
[2023-10-17 17:09] LABS: BASO % 0.3 % (0-2.0); HEMATOCRIT 36.2 % (35.4-49); LYMPH % 10.9 % (8-40); MCH 26.4 pg (25.7-33.7); MCHC 33.1 g/dl (32.0-35.9); MEAN CELL VOLUME 79.9 fl (80-96); MEAN PLT VOLUME 9.1 fl (7.5-11.1); MONO % 9.1 % (3.8-10.2); NEUT % 79.7 % (42.8-82.8); PLATELET COUNT 248 10^3/uL (134-434); RBC 4.52 M/mm3 (4.00-5.60); RDW 14.9 % (11.9-15.9); WHITE BLOOD COUNT 10.1 K/mm3 (4.0-10.0)
[2023-10-17] MEDS ORDERED: LABETALOL HCL 5 MG/1 ML (100MG/20 ML VIAL) ONE (17:10)
[2023-10-17 17:36] LABS: CALCIUM 9.4 mg/dL (8.5-10.1)
[2023-10-17 17:37] LABS: ALBUMIN 3.5 g/dl (3.4-5.0); BLOOD UREA NITROGEN 29.3 mg/dL (7-18)
[2023-10-17 17:40] LABS: CREATININE 1.4 mg/dL (0.55-1.3)
[2023-10-17 17:42] LABS: BILIRUBIN,TOTAL 0.2 mg/dL (0.2-1); TOT PROT 7.6 g/dl (6.4-8.2)
[2023-10-17] MEDS ORDERED: POTASSIUM CHLORIDE ORAL LIQUID 20 MEQ/15 ML PO ONE (18:26)
[2023-10-17] MEDS ORDERED: POTASSIUM CHLORIDE TABS 20 MEQ TABLET.ER (FP) PO ONE (18:54)
[2023-10-17] MEDS ORDERED: LOSARTAN POTASSIUM 50 MG TABLET PO ONE (21:32)
[2023-10-17] MEDS ORDERED: LOSARTAN POTASSIUM 50 MG TABLET ONE (21:40)
[2023-10-17] MEDS ORDERED: ALBUTEROL SO4 2.5/IPRATROPIUM 0.5 INH SOL 3 ML VIAL.NEB. NEB PRN (22:20)
[2023-10-17] MEDS ORDERED: MELATONIN 5 MG TABLETS ONE ×2 (22:46→22:58)
[2023-10-17] MEDS: MELATONIN 5 MG TABLETS PO SCH (23:00)
[2023-10-18] MEDS ORDERED: HEPARIN NA (PORCINE) 5,000 UNITS/ML 1ML VIAL ONE ×2 (06:11→20:52)
[2023-10-18] MEDS: HEPARIN NA (PORCINE) 5,000 UNITS/ML 1ML VIAL SQ SCH ×3 (06:15→21:16)
[2023-10-18] MEDS: ALBUTEROL SO4 2.5/IPRATROPIUM 0.5 INH SOL 3 ML VIAL.NEB. NEB SCH ×4 (07:45→19:22)
[2023-10-18 08:20] LABS: HEMATOCRIT 34.5 % (35.4-49); HEMOGLOBIN 11.3 GM/dL (11.7-16.9); MCH 26.6 pg (25.7-33.7); MCHC 32.8 g/dl (32.0-35.9); MEAN CELL VOLUME 80.9 fl (80-96); MEAN PLT VOLUME 9.3 fl (7.5-11.1); PLATELET COUNT 257 10^3/uL (134-434); RBC 4.27 M/mm3 (4.00-5.60); RDW 14.6 % (11.9-15.9); WHITE BLOOD COUNT 6.6 K/mm3 (4.0-10.0)
[2023-10-18 08:42] LABS: ALBUMIN 3.2 g/dl (3.4-5.0); CALCIUM 8.7 mg/dL (8.5-10.1)
[2023-10-18 08:43] LABS: BLOOD UREA NITROGEN 21.6 mg/dL (7-18); MAGNESIUM 1.7 mg/dL (1.8-2.4)
[2023-10-18 08:44] LABS: PHOSPHOROUS 3.2 mg/dL (2.5-4.9)
[2023-10-18 08:45] LABS: BILIRUBIN,TOTAL 0.3 mg/dL (0.2-1)
[2023-10-18 08:46] LABS: CREATININE 1.3 mg/dL (0.55-1.3)
[2023-10-18] MEDS: ASPIRIN 81 MG CHEWABLE TABLETS PO SCH (10:30)
[2023-10-18] MEDS: LOSARTAN POTASSIUM 50 MG TABLET PO SCH (10:31)
[2023-10-18] MEDS: predniSONE 20 MG TABLET (UD) PO SCH (10:31)
[2023-10-18] MEDS ORDERED: POTASSIUM CHLORIDE TABS 20 MEQ TABLET.ER (FP) PO ONE (13:23)
[2023-10-18] MEDS: POTASSIUM CHLORIDE TABS 20 MEQ TABLET.ER (FP) PO SCH (13:26)
[2023-10-18] MEDS ORDERED: MELATONIN 5 MG TABLETS ONE (20:52)
[2023-10-18] MEDS ORDERED: ATORVASTATIN CA 80 MG TABLET (FP) ONE (20:52)
[2023-10-18] MEDS: MELATONIN 5 MG TABLETS PO SCH (21:16)
[2023-10-18] MEDS ORDERED: hydrALAZINE HCL 20 MG/ML VIAL IVPUSH ONE (21:40)
[2023-10-18] MEDS ORDERED: hydrALAZINE HCL 20 MG/ML VIAL ONE (21:49)
[2023-10-18] MEDS ORDERED: ATORVASTATIN CA 80 MG TABLET (FP) PO SCH (22:00)
[2023-10-19 00:26] VITALS: TEMP 97.3
[2023-10-19] MEDS: HEPARIN NA (PORCINE) 5,000 UNITS/ML 1ML VIAL SQ SCH (05:15)
[2023-10-19 08:42] LABS: POTASSIUM 3.4 mmol/L (3.5-5.1)
[2023-10-19 08:49] LABS: BLOOD UREA NITROGEN 30.9 mg/dL (7-18)
[2023-10-19 08:50] LABS: CALCIUM 9.2 mg/dL (8.5-10.1)
[2023-10-19 08:52] LABS: CREATININE 1.2 mg/dL (0.55-1.3)
[2023-10-19 08:57] VITALS: BP 175/99; PULSE 82; RESP 20
[2023-10-19] MEDS: ASPIRIN 81 MG CHEWABLE TABLETS PO SCH (09:00)
[2023-10-19] MEDS: POTASSIUM CHLORIDE TABS 20 MEQ TABLET.ER (FP) PO SCH (09:01)
[2023-10-19] MEDS: predniSONE 20 MG TABLET (UD) PO SCH (09:01)
[2023-10-19] MEDS: LOSARTAN POTASSIUM 50 MG TABLET PO SCH (09:01)
[2023-10-19] MEDS: ALBUTEROL SO4 2.5/IPRATROPIUM 0.5 INH SOL 3 ML VIAL.NEB. NEB SCH ×2 (09:24→12:51)
[2023-10-19] MEDS ORDERED: FUROSEMIDE 40 MG/4 ML INJECTABLE VIAL IVPUSH SCH (10:00)
== END 2023-10-19 13:46 | disposition left against medical advice (07) | DRG 291 ==
LOC: JER 15:03 → JERBED 18:29 → OBSVTOIN 10-19 13:15
PROVIDERS: ADMIT Internal Medicine; ATTEND Internal Medicine
DX: I13.0 Hypertensive heart and chronic kidney disease with heart failure and stage 1 through stage 4 chronic kidney disease, or unspecified chronic kidney disease (principal); I50.21 Acute systolic (congestive) heart failure; J45.901 Unspecified asthma with (acute) exacerbation; I16.0 Hypertensive urgency; R51.9 Headache, unspecified; E78.5 Hyperlipidemia, unspecified; N18.9 Chronic kidney disease, unspecified; I45.10 Unspecified right bundle-branch block; H53.8 Other visual disturbances; G89.29 Other chronic pain; H26.9 Unspecified cataract
CPT/HCPCS: 0241U-QW; 36415; 70450-TC; 71045-TC-FY; 76775-TC; 80048; 80053; 81003; 82607; 83036; 83735; 84100; 84484; 85025; 85027; 87086; 93005; 93010; 93306-TC; 99285-25; G0378; J1644